=== PATIENT | female | born 1960 | race Caucasian/White ===

== ENCOUNTER → 2020-10-31 | Outpatient (CLI) | payer OTHER ==
[~2020-10-31] MED LIST: ALDACTONE25 MG PO; ATROVENT INH; COREG 3.125M3.125 MG PO; ECOTRIN81 MG PO; FISH OIL 1,0001 EAC5 PO; GLUCOPHAGE1000 MG PO; ISORDIL TAB 3030 MG PO; LIPITOR TAB 2020 MG PO; NEURONTIN 300300 MG PO; PAXIL CR12.5 MG PO; PRINIVIL20 MG PO; SINGULAIR10 MG PO; VENTOLIN HFA 66.7 GM INH; ZYRTEC10 MG PO
== END ==
LOC: CT 10-27 15:00
DX: R68.89 Other general symptoms and signs (principal); I73.9 Peripheral vascular disease, unspecified; I72.8 Aneurysm of other specified arteries
CPT/HCPCS: 36415; 75635; 82565; Q9967